=== PATIENT | male | born 1985 | race Hispanic/Latino ===

== ENCOUNTER 2017-03-21 07:36 | Emergency (ER) | payer SELFPAY ==
[2017-03-21] MEDS ORDERED: Diazepam 5 MG TAB ONE (08:05)
[2017-03-21] MEDS ORDERED: Naproxen 500 MG TAB ONE (08:05)
[2017-03-21] MEDS ORDERED: HYDROcodone/Acetaminophen 10/325 mg Tablet ONE (08:05)
--- NOTE | 2017-03-21 09:06 | RAD ---
AP PELVIS: HISTORY: Pelvic pain. FINDINGS: Pelvic ring is intact without evidence of fracture. SI joints are symmetric. No diastasis of the s ymphysis. IMPRESSION: No acute findings. POS: [facility]
--- NOTE | 2017-03-21 09:34 | RAD ---
LUMBAR SPINE SERIES THREE VIEWS HISTORY: Spine pain. History of trauma. FINDINGS: The vertebral bodies are normal in height. There is disk narrowing at L5-S1 with minimal spondyloli sthesis and what may be pars defects. It is difficult to assess on these films. There are no signs of any acute injury. Small osteophytes are seen at L2-L3 and L3-L4. Minimal disk narrowing is see n at L4-L5. 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 No acute injury. POS: [facility]
== END 2017-03-21 08:56 | disposition home or self-care (01) ==
LOC: MADERS 07:36
DX: M54.41 Lumbago with sciatica, right side (principal)
CPT/HCPCS: 72100; 72170

== ENCOUNTER 2018-07-19 11:52 | Emergency (ER) | payer BC, SELFPAY ==
[2018-07-19] MEDS ORDERED: Ibuprofen 800 MG TAB ONE (12:11)
[2018-07-19] MEDS ORDERED: Acetaminophen 500 MG TAB ONE (12:12)
--- NOTE | 2018-07-19 13:54 | RAD ---
RADIOGRAPH LEFT LEG TIBIA FIBULA 2 VIEWS: Date: 07/19/18 HISTORY: 32-year-old female status post blunt trauma to the left leg. FINDINGS: There is no fracture or any other focal osseous abnormality of the tibia or fibula. IMPRESSION: Negative. POS: [facility]
== END 2018-07-19 13:17 | disposition home or self-care (01) ==
LOC: MADERS 11:52
DX: S80.12XA Contusion of left lower leg, initial encounter (principal); W22.8XXA Striking against or struck by other objects, initial encounter

== ENCOUNTER 2018-08-09 00:24 | Emergency (ER) | payer BC ==
[2018-08-09] MEDS ORDERED: Morphine 4 MG/ML VIAL ONE (00:51)
[2018-08-09] MEDS ORDERED: Ondansetron PF 4 MG/2 ML Vial ONE (00:51)
[2018-08-09] MEDS ORDERED: diphenhydrAMINE 50 MG/ML VIAL ONE (00:51)
[2018-08-09 00:59] LABS: #Basophils 0.1 thou/uL (0.0-0.2); #Eosinphils 0.1 thou/uL (0.0-0.7); #Monocytes 1.1 thou/uL (0.11-0.59); #Neutrophils 13.9 thou/uL (1.40-6.50); %Basophils 0.5 % (0.0-1.0); %Eosinophils 0.4 % (0.0-10.0); %Lymphocytes 11.8 % (21.0-51.0); %Monocytes 6.5 % (0.0-10.0); %Neutrophils 80.8 % (42.0-75.0); Hemoglobin 16.2 g/dL (14.0-18.0); Mean Corpuscular HGB CONC 35.3 g/dL (32.0-36.0); Mean Corpuscular Hemoglobin 29.9 pg (27.0-31.0); Mean Corpuscular Volume 84.8 fL (78.0-98.0); Mean Platelet Volume 6.8 fL (7.4-10.4); Platelet Count 259 thou/uL (130-400); RBC Distribution Width 11.3 % (11.5-14.5); Red Blood Cell (RBC) Count 5.42 mill/uL (4.70-6.10); White Blood Cell (WBC) Count 17.1 thou/uL (4.8-10.8)
[2018-08-09 01:01] LABS: Bilirubin Negative (Negative); Blood, Urine Negative (Negative); Clarity Clear (Clear); Glucose, Urine (Dipstick) Negative (Negative); Leukocyte Negative (Negative); Nitrite Negative (Negative); Protein, Urine (Dipstick) 100 mg/dL (Neg-Trace); Urobilinogen 0.2 mg/dL (0.2-1.0); pH, Urine 8.5 (5.0-9.0)
[2018-08-09 01:08] LABS: Bacteria/HPF 2+ HPF (None Seen); Transitional Epithelial 0-3 HPF (0-3)
[2018-08-09 01:16] LABS: ALT (SGPT) 50 U/L (8-55); AST (SGOT) 29 U/L (5-34); Albumin 4.6 g/dL (3.5-5.0); Alkaline Phosphatase 112 U/L (40-150); Anion Gap 15 mmol/L (10-20); BUN (Urea Nitrogen) 12 mg/dL (8.9-20.6); Bilirubin, Total 0.4 mg/dL (0.2-1.2); Calc. Creatinine Clearance 0 mL/min (70-130); Calcium 10.1 mg/dL (7.8-10.44); Carbon Dioxide 26 mmol/L (22-29); Chloride 101 mmol/L (98-107); Estimated GFR-MDRD Greater than 90; Globulin 2.8 g/dL (2.4-3.5); Glucose 147 mg/dL (70-105); Lipase 16 U/L (8-78); Potassium 3.4 mmol/L (3.5-5.1); Protein, Total 7.4 g/dL (6.0-8.3); Sodium 139 mmol/L (136-145)
[2018-08-09] MEDS ORDERED: Sodium Chloride 0.9% 1,000 ML ONE ×2 (01:20→02:24)
[2018-08-09] MEDS ORDERED: Ampicillin/Sulbactam 3 GM VIAL ONE (02:24)
[2018-08-09] MEDS ORDERED: Sodium Chloride 0.9% 100 ML ONE (02:24)
--- NOTE | 2018-08-09 08:22 | CT ---
PRELIMINARY REPORT/[facility]/EMERGENTY AFTER-HOURS PROCEDURE Addendum created by Soren King MD on 08/09/2018 2:32 AM Central Time ([place] & [place]) Findings disc ussed with OFELIA CARLOS MD at time of interpretation. Initial Report created on 08/09/2018 2:20 AM Central Time ([place] & [place]) CT Abdomen and Pelvis With Intravenous Contrast EXAM DATE/TIME: 08/09/2018 1:24 AM CLINICAL HISTORY: 33 years old, male; Pain; Abdominal pain; Flank; Right lower quadrant (rlq); Patient HX: PT states pa in to mid abd. And rlq . started today TECHNIQUE: Axial computed tomography images of the abdomen and pelvis with intravenous contrast. All CT scans at this facility use at least one of these dose optimization techniques: automated expos ure control; mA and/or kV adjustment per patient size (includes targeted exams where dose is matched to clinical indication); or iterative reconstruction. CONTRAST: 370 ml of ISOVUE administered intravenously. COMPARISON: No relevant prior studies available. FINDINGS: Lower thorax: No acute findings. ABDOMEN: Liver: Normal. No mass. Gallbladder and bile ducts: Normal. No calcified stones. No ductal dilation. Pancreas: Normal. No ductal dilation. Spleen: Normal. No splenomegaly. Adrenals: Normal. No mass. Kidneys and ureters: Normal. No hydronephrosis. Stomach and bowel: No bowel wall thickening or intestinal obstruction. Appendix: The appendix is fluid-filled and dilated to 1.3 cm in caliber with mild periappendiceal inf lammation, consistent with acute appendicitis. PELVIS: Bladder: Unremarkable as visualized. Reproductive: Unremarkable as visualized. ABDOMEN and PELVIS: Intraperitoneal space: No pneumoperitoneum or abscess. Bones/joints: No acute fracture. No dislocation. Soft tissues: Unremarkable. Vasculature: Normal. No abdominal aortic aneurysm. Lymph nodes: Normal. No enlarged lymph nodes. IMPRESSION: Acute appendicitis. Thank you for allowing us to participate in the care of your patient. Dictated and Authenticated by: Soren King MD FINAL REPORT CT ABDOMEN AND PELVIS WITH CONTRAST: History: Right lower quadrant pain. Comparison: None. FINDINGS: Lung bases are clear. No pericardial effusion. Appendix is dilated with low grade periappendiceal inf lammation. IMPRESSION: Findings and impression are concordant with the preliminary report. Code QA POS: [facility]
== END 2018-08-09 03:20 | disposition short-term general hospital (02) ==
LOC: MADERS 00:24
DX: K35.80 Unspecified acute appendicitis (principal)
CPT/HCPCS: 74177; 80053; 81003; 81015; 83605; 83690; 85025; 94760; 96361; 96365; 96375; J0295; J1200; J2270; J2405; J7050

== ENCOUNTER 2018-11-23 14:28 | Emergency (ER) | payer BC ==
--- NOTE | 2018-11-23 15:33 | RAD ---
RIGHT FOOT THREE VIEWS 11/23/18 HISTORY: Injury. Right foot pain. FINDINGS/IMPRESSION: No fracture or dislocation is seen. No radiopaque foreign body is identified. POS: OFF
== END 2018-11-23 15:41 | disposition home or self-care (01) ==
LOC: MADERS 14:28
DX: S90.31XA Contusion of right foot, initial encounter (principal); W20.8XXA Other cause of strike by thrown, projected or falling object, initial encounter